=== PATIENT | male | born 1985 | race Hispanic/Latino ===

== ENCOUNTER 2022-11-06 04:28 | Emergency (ER) | payer SELFPAY ==
--- NOTE | ~2022-11-06 | XR_ITS ---
EXAMINATION: XR shoulder RT min 2V DATE: 11/06/2022 05:39 INDICATION: Right shoulder pain post fall TECHNIQUE: AP internally and externally rotated, AP oblique externally rotated and transscapular Y vi ews of the affected shoulder were obtained. COMPARISON: None FINDINGS: Normal alignment. No fracture. Glenohumeral joint is normal. Acromioclavicular joint is normal. Soft tissues are unremarkable. Right lung is clear. IMPRESSION: Negative right shoulder radiographs. Reviewed, dictated and finalized at location [facility]. [facility]
[2022-11-06 04:33] VITALS: BP 137/99; PULSE 103; RESP 18; TEMP 36; O2SAT 98
--- NOTE | 2022-11-06 04:45 | ED.GENADULT ---
HPI - General Adult General Chief complaint: Fall Stated complaint: fall from ladder, right shoulder pain Time Seen by Provider: 11/06/22 04:35 History of Present Illness HPI narrative: 37-year-old male presenting to the emergency department for evaluation of right shoulder pain after having a fall from a ladder. Patient states that approximately 1030 he was attempting to take down his [place] lights when he had a fall from mcc up a 12 foot ladder. Patient did injure his right shoulder but denies striking his head denies any loss of consciousness. Related Data Allergies Allergy/AdvReac Type Severity Reaction Status Date / Time No Known Allergies Allergy Verified 11/06/22 04:29 Review of Systems Review of Systems: CONSTITUTIONAL: Denies fever, chills, or sweats. EYES: Denies visual changes, redness, or discharge. ENT: Denies rhinorrhea, congestion, sore throat, or otalgia. CARDIOVASCULAR: Denies chest pain, palpitations, or edema. RESPIRATORY: Denies cough or dyspnea. GASTROINTESTINAL: Denies abdominal pain, nausea, vomiting, or diarrhea. GENITOURINARY: Denies dysuria or hematuria. SKIN: Denies rash or itching. MUSCULOSKELETAL: See HPI NEUROLOGIC: Denies headache, numbness, or weakness. Exam Narrative: APPEARANCE: Well appearing, no pain, no distress, well-nourished. HEAD: normocephalic, atraumatic. EYES: PERRLA/EOMI, conjunctivae clear. NOSE: Normal no drainage EARS:TMS clear with good light reflex. NECK: Supple. No adenopathy, no masses. RESPIRATORY: Airway patent, respirations nonlabored. Clear to auscultation bilaterally, no rales, rhonchi, wheezing. CARDIOVASCULAR: Regular rate and rhythm without murmurs rubs or gallops. ABDOMINAL: Soft, nontender, nondistended, normal bowel sounds MUSCULOSKELETAL: Right shoulder tenderness to palpation. Limited range of motion. Neurovascular intact. NEURO: Alert. Cranial nerves II through XII intact. SKIN: Warm, dry. Normal Color Course Course Emergency Course: X-ray was negative for acute fracture. Patient was provided a prior sling for comfort. Patient was updated the results of his work-up and was comfortable with the plan for discharge and close follow-up. Patient has no other signs of injury or other complaints at this time. Vital Signs Vital signs: Vital Signs Temperature 96.8 F L 11/06/22 04:33 Pulse Rate 103 H 11/06/22 04:33 Respiratory Rate 18 11/06/22 04:33 Blood Pressure 137/99 H 11/06/22 04:33 Pulse Oximetry 98 11/06/22 04:33 Oxygen Delivery Room Air 11/06/22 04:33 Temperature 96.8 F L 11/06/22 04:33 Pulse Rate 103 H 11/06/22 04:33 Respiratory Rate 18 11/06/22 04:33 Blood Pressure 137/99 H 11/06/22 04:33 Pulse Oximetry 98 11/06/22 04:33 Oxygen Delivery Room Air 11/06/22 04:33 Medical Decision Making Vital Signs Vital Signs: Vital Signs Temperature 96.8 F L 11/06/22 04:33 Pulse Rate 103 H 11/06/22 04:33 Respiratory Rate 18 11/06/22 04:33 Blood Pressure 137/99 H 11/06/22 04:33 Pulse Oximetry 98 11/06/22 04:33 Oxygen Delivery Room Air 11/06/22 04:33 Temperature 96.8 F L 11/06/22 04:33 Pulse Rate 103 H 11/06/22 04:33 Respiratory Rate 18 11/06/22 04:33 Blood Pressure 137/99 H 11/06/22 04:33 Pulse Oximetry 98 11/06/22 04:33 Oxygen Delivery Room Air 11/06/22 04:33 Discharge Plan Discharge Clinical Impression: Injury of right shoulder Patient Disposition: Home, Self-Care Condition: Stable Instructions: Antibiotic Form, Shoulder Sprain (ED) Additional Instructions: Pouch sling for comfort. Tylenol and ibuprofen for pain control. Flexeril as needed for muscle spasm. Prescriptions: New cyclobenzaprine 10 mg tablet 10 mg PO BID PRN (Reason: muscle spasm) Qty: 14 0RF Follow-up/Referrals: PHYSICIAN,FABRIC WORKER [Primary Care Provider] - Stand Alone Forms: Work/School Release IP
[2022-11-06] MEDS: CYCLOBENZAPRINE HCL 10 MG TABLET PO (04:55)
[2022-11-06] MEDS: ACETAMINOPHEN 500 MG TABLET 1000 MG PO (04:55)
== END 2022-11-06 06:14 | disposition home or self-care (01) ==
LOC: ANHED 04:52
PROVIDERS: Emergency Provider Emergency Medicine
DX: S49.91XA Unspecified injury of right shoulder and upper arm, initial encounter (principal); W11.XXXA Fall on and from ladder, initial encounter
CPT/HCPCS: 73030; 99283; A4565; A9270